=== PATIENT | male | born 1950 | race American Indian/Alaskan Native ===

== ENCOUNTER 2018-09-01 00:18 | Emergency (ER) | payer MEDICARE ==
--- NOTE | 2018-09-01 01:21 | Emergency Department Report ---
- General Chief complaint: Weakness Stated complaint: WEAKNESS Time Seen by Provider: 09/01/18 01:16 Source: patient Mode of arrival: Ambulatory Limitations: No Limitations - History of Present Illness Initial comments: 68-year-old male with generalized weakness, lightheadedness 2 weeks. Patient states he was seen by his PCP and told that everything was fine. Patient says the symptoms are intermittent. Normally occur while he is walking. Denies sensation of room spinning. Denies headache, nausea, vomiting, diarrhea, fever, abdominal pain. Patient reports 20 pound weight loss in approximately 1 month. states patient has not been eating as he normally does, patient states he has not had an appetite. PCP: Aneta VICK Complaint: generalized weakness -: week(s) (2) Location: generalized Severity: moderate Severity scale (0 -10): 0 Consistency: intermittent Worsens with: movement Associated Symptoms: loss of appetite. denies: chest pain, fever/chills, headaches, nausea/vomiting, shortness of breath - Related Data Allergies Allergy/AdvReac Type Severity Reaction Status Date / Time No Known Allergies Allergy Verified 09/01/18 00:25 ED Review of Systems ROS: Stated complaint: WEAKNESS Other details as noted in HPI Comment: All other systems reviewed and negative Constitutional: denies: chills, fever Respiratory: denies: cough, shortness of breath Cardiovascular: denies: chest pain Gastrointestinal: denies: abdominal pain, nausea, vomiting, diarrhea Neurological: denies: headache, numbness, paresthesias ED Past Medical Hx - Past Medical History Previous Medical History?: Yes Hx Diabetes: Yes - Surgical History Past Surgical History?: No - Social History Smoking Status: Never Smoker Substance Use Type: None ED Physical Exam - General Limitations: No Limitations General appearance: alert, in no apparent distress - Head Head exam: Present: atraumatic, normocephalic - Eye Eye exam: Present: normal appearance, PERRL, EOMI - ENT ENT exam: Present: mucous membranes moist - Neck Neck exam: Present: normal inspection - Respiratory Respiratory exam: Present: normal lung sounds bilaterally. Absent: respiratory distress - Cardiovascular Cardiovascular Exam: Present: regular rate, normal rhythm - GI/Abdominal GI/Abdominal exam: Present: soft. Absent: distended, tenderness - Extremities Exam Extremities exam: Present: normal inspection - Neurological Exam Neurological exam: Present: alert, oriented X3, CN II-XII intact, other ([id number] normal). Absent: motor sensory deficit - Psychiatric Psychiatric exam: Present: normal affect, normal mood - Skin Skin exam: Present: warm, dry, intact, normal color ED Course Vital Signs 09/01/18 09/01/18 09/01/18 00:21 01:07 01:09 Temperature 97.3 F L Pulse Rate 97 H 77 Pulse Rate [ Lying] Pulse Rate [ Sitting] Pulse Rate [ Standing] Respiratory 18 21 21 Rate Blood Pressure 106/55 Blood Pressure [Lying] Blood Pressure 136/59 [Right] Blood Pressure [Sitting] Blood Pressure [Standing] O2 Sat by Pulse 100 100 100 Oximetry 09/01/18 09/01/18 09/01/18 01:19 01:28 03:46 Temperature Pulse Rate 74 62 Pulse Rate [ 72 Lying] Pulse Rate [ 74 Sitting] Pulse Rate [ 81 Standing] Respiratory 18 Rate Blood Pressure Blood Pressure 123/53 [Lying] Blood Pressure 139/53 [Right] Blood Pressure 117/58 [Sitting] Blood Pressure 71/37 [Standing] O2 Sat by Pulse 98 Oximetry 09/01/18 09/01/18 04:00 04:59 Temperature Pulse Rate 64 Pulse Rate [ 58 L Lying] Pulse Rate [ 67 Sitting] Pulse Rate [ 72 Standing] Respiratory 20 Rate Blood Pressure Blood Pressure 152/58 [Lying] Blood Pressure 136/67 [Right] Blood Pressure 151/63 [Sitting] Blood Pressure 154/62 [Standing] O2 Sat by Pulse 99 Oximetry ED Medical Decision Making - Lab Data Result diagrams: 09/01/18 01:28 09/01/18 01:28 - EKG Data -: EKG Interpreted by Co EKG shows normal: sinus rhythm, axis, intervals, QRS complexes Rate: normal - EKG Data Interpretation: nonspecific ST-T wave kamila - Radiology Data Radiology results: report reviewed, image reviewed - Medical Decision Making - 68 yo M with intermittent gen weakness x 2 wks, previously seen by PCP for same - pt initially orthostatic, w/ standing BP 71/37 - pt and report decreased appetite, decreased PO intake and weight loss over the last month - neuro exam normal - CT Head, CXR negative for any acute findings - labs, EKG normal - pt fluid resuscitated with 2L bolus NS; on repeat testing, pt is not orthostatic, feeling much better - advised increased PO intake, water intake - return precautions given - PCP f/u advised - Differential Diagnosis infection, dehydration, CVA Critical care attestation.: If time is entered above; I have spent that time in minutes in the direct care of this critically ill patient, excluding procedure time. ED Disposition Clinical Impression: Orthostatic dizziness, Dehydration Disposition: DC-01 TO HOME OR SELFCARE Is pt being admited?: No Condition: Stable Instructions: Dehydration (ED), Hypotension (ED) Referrals: PRIMARY CARE, [Primary Care Provider] - 3-5 Days Time of Disposition: 04:20
--- NOTE | 2018-09-01 01:45 | XRay Report ---
CHEST 1 VIEW INDICATION: weakness. COMPARISON: None. FINDINGS: Support devices: None. Heart: Normal. Lungs/Pleura: No acute pulmonary or pleural findings. IMPRESSION: 1. No acute findings. Signer Name: Matt Salazar MD Signed: 09/01/2018 1:41 AM Workstation Name: [id number]
[2018-09-01 01:49] LABS: Hematocrit 37.3 % (35.5-45.6); Hemoglobin 12.7 gm/dl (11.8-15.2); Mean Corpuscular HGB Conc 34 % (32-34); Mean Corpuscular Volume 89 fl (84-94); Platelet Count 178 K/mm3 (140-440); Red Blood Count 4.21 M/mm3 (3.65-5.03)
[2018-09-01] MEDS ORDERED: NACL 0.9% 1000 ML 2,000 ML ONE (01:49)
[2018-09-01] MEDS ORDERED: NACL 0.9% 1000 ML 1,000 ML IV ONE ×2 (01:50→01:51)
[2018-09-01 02:02] LABS: INR 1.07 (0.87-1.13); Partial Thromboplastin Time 22.8 Sec. (24.2-36.6)
[2018-09-01 02:13] LABS: Alanine Aminotransferase 11 units/L (7-56); BUN/Creatinine Ratio 18; Blood Urea Nitrogen 16 mg/dL (9-20); Calcium 9.7 mg/dL (8.4-10.2); Hemolysis Index 35
--- NOTE | 2018-09-01 02:21 | Cat Scan Report ---
CT HEAD WITHOUT CONTRAST INDICATION: dizziness. TECHNIQUE: All CT scans at this location are performed using CT dose reduction for ALARA by means of automated e xposure control. COMPARISON: None available. FINDINGS: HEMORRHAGE: None. EXTRA-AXIAL SPACES: Normal in size and morphology for the patient's age. VENTRICULAR SYSTEM: Lateral and third ventricles are dilated, this may be due to deep cerebral atroph y. BRAIN PARENCHYMA: No acute findings. CSF density in the right insular cortex may be an area of enceph alomalacia related to chronic infarct or a prominent perivascular space. MIDLINE SHIFT OR HERNIATION: None. ORBITS: Normal as visualized. SOFT TISSUES OF HEAD: Normal. CALVARIUM: Normal. VISUALIZED PARANASAL SINUSES AND MASTOID AIR CELLS: Clear. ADDITIONAL FINDINGS: None. IMPRESSION: 1. 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 Compar osvaldo with priors, if available, would be useful. Fourth ventricle is normal in size. 2. No acute parenchymal findings. Signer Name: Matt Salazar MD Signed: 09/01/2018 2:17 AM Workstation Name: [id number]
[2018-09-01 03:52] LABS: Bilirubin,Urine NEG (Negative); Blood,Urine NEG (Negative); Color,Urine Yellow (Yellow); Mucus,Urine 3+ /HPF
[2018-09-01 04:24] LABS: Total Cells Counted 100
[2018-09-01 04:25] LABS: Anisocytosis 1+; Ovalocytes 1+; Platelet Estimate Consistent w Auto
[2018-09-01 04:59] VITALS: BP 136/67
== END 2018-09-01 05:30 | disposition home or self-care (01) ==
LOC: ED 00:18
DX: E86.0 Dehydration (principal); E11.9 Type 2 diabetes mellitus without complications; R42 Dizziness and giddiness
CPT/HCPCS: 36415; 70450; 71045; 80053; 81001; 84484; 85007; 85025; 85610; 85730; 93005; 93010; 96360; 99285; J7030